=== PATIENT | female | born 1980 | race Caucasian/White ===

== ENCOUNTER → 2023-08-27 11:32 | Outpatient (REF) | payer BC, SELFPAY | LOC: WDC 11:32 | PROVIDERS: ATTENDING PHYSICIAN Nurse Practitioner Family | DX: Z12.31 Encounter for screening mammogram for malignant neoplasm of breast (principal) | CPT/HCPCS: 77063; 77067 ==

== ENCOUNTER → 2024-09-01 11:43 | Outpatient (REF) | payer BC, SELFPAY | LOC: WDC 11:43 | PROVIDERS: ATTENDING PHYSICIAN Nurse Practitioner Family | DX: Z12.31 Encounter for screening mammogram for malignant neoplasm of breast (principal) | CPT/HCPCS: 77063; 77067 ==

== ENCOUNTER → 2024-10-06 15:38 | Outpatient (REF) | payer BC, SELFPAY | LOC: RAD 15:38 | PROVIDERS: ATTENDING PHYSICIAN Nurse Practitioner Family | DX: R10.84 Generalized abdominal pain (principal) | CPT/HCPCS: 74177; Q9967 ==